=== PATIENT | female | born 1945 | race Caucasian/White ===

== ENCOUNTER 2018-09-11 20:24 | Emergency (ER) | payer OTHER ==
[~2018-09-11] VITALS: Ht 170.2 cm; Wt 64.0 kg
[2018-09-11 20:25] VITALS: BP_SYST 119
[2018-09-11] MEDS ORDERED: DIPH-TET-PERTUS Vaccine 0.5 ML VIAL (ADACEL) I.M. ONE (23:45)
[2018-09-12 00:05] VITALS: BP_SYST 119
== END 2018-09-12 00:05 | disposition home or self-care (01) ==
LOC: SED 20:24
DX: S51.811A Laceration without foreign body of right forearm, initial encounter (principal); S00.83XA Contusion of other part of head, initial encounter; I11.0 Hypertensive heart disease with heart failure; I50.9 Heart failure, unspecified; J45.909 Unspecified asthma, uncomplicated; Z88.1 Allergy status to other antibiotic agents; Y04.0XXA Assault by unarmed brawl or fight, initial encounter; Y93.89 Activity, other specified; Y92.89 Other specified places as the place of occurrence of the external cause; Y99.8 Other external cause status
CPT/HCPCS: 90715; 99283

== ENCOUNTER 2020-06-25 10:00 | Outpatient (CLI) | payer MEDICARE, MEDICAID, SELFPAY | END 2020-06-25 10:30 | disposition home or self-care (01) | LOC: SLB 10:00 → EDSTATUS 06-29 10:30 | PROVIDERS: ATTEND Surgery | DX: Z01.812 Encounter for preprocedural laboratory examination (principal); Z20.822 Contact with and (suspected) exposure to COVID-19; D48.5 Neoplasm of uncertain behavior of skin | CPT/HCPCS: U0003 ==

== ENCOUNTER 2020-07-27 07:08 | Day surgery (SDC) | payer MEDICARE, MEDICAID, SELFPAY ==
[~2020-07-27] VITALS: Ht 170.2 cm; Wt 63.5 kg
[~2020-07-27 07:08] MED LIST: CEFAZOLIN SOD 2 GM in D5W 50 ML IV ONE
[2020-07-27] MEDS ORDERED: SEVOFLURANE 15 MIN GAS INH ONE (11:25)
[2020-07-27] MEDS ORDERED: NEOSTIGMINE METHYLSULFATE 1 MG/ML, 10 ML VIAL IVP ONE (11:25)
[2020-07-27] MEDS ORDERED: BUPIVACAINE /EPINEPHRINE/PF 0.5% 30 ML VIAL INJ ONE (11:25)
[2020-07-27] MEDS ORDERED: KETOROLAC TROMETHAMINE 30 MG VIAL IVP ONE (11:25)
[2020-07-27] MEDS ORDERED: NS 1000 ML IV.SOLN IV ONE (11:25)
[2020-07-27] MEDS ORDERED: GLYCOPYRROLATE 0.2 MG/ML VIAL IJ ONE (11:25)
[2020-07-27] MEDS ORDERED: LIDOCAINE 1% 10 MG/ML, 20 ML MDV INJ ONE (11:25)
[2020-07-27] MEDS ORDERED: NS IRRIG SOLN 1000 ML IR ONE (11:25)
[2020-07-27] MEDS ORDERED: ROCURONIUM BROMIDE 10 MG/ML (ZEMURON) IV ONE (11:25)
[2020-07-27] MEDS ORDERED: SUCCINYLCHOLINE CHLORIDE 20 MG/ML(QUELICIN) IVP ONE (11:25)
[2020-07-27] MEDS ORDERED: fentaNYL CITRATE/PF 100 MCG/2 ML AMP IVP ONE (11:25)
[2020-07-27] MEDS ORDERED: fentaNYL CITRATE/PF 100 MCG/2 ML AMP IVP PRN (12:30)
[2020-07-27] MEDS ORDERED: HYDROmorphone 2 MG/ML VIAL IVP PRN ×2 (12:30)
[2020-07-27] MEDS ORDERED: MEPERIDINE HCL/PF 25 MG/ML DISP.SYRIN IVP PRN (12:30)
[2020-07-27] MEDS ORDERED: HYDROmorphone 1 MG/ML INJ. CARTRIDGE IVP PRN (12:30)
[2020-07-27] MEDS ORDERED: LR 1,000 ML IV SCH (12:30)
[2020-07-27 14:39] VITALS: BP_SYST 139
== END 2020-07-27 14:25 | disposition home or self-care (01) ==
LOC: SDS 07:08 → SMU 07:08 → SDS 14:25
PROVIDERS: ATTEND Surgery
DX: L08.89 Other specified local infections of the skin and subcutaneous tissue (principal); D48.5 Neoplasm of uncertain behavior of skin; Z20.822 Contact with and (suspected) exposure to COVID-19
CPT/HCPCS: 11420; 88305; J0330; J0690; J1885; J2001; J2710; J3010; J3490 ×2; J7030; J7060; U0003